=== PATIENT | female | born 1960 | race Caucasian/White ===

== ENCOUNTER → 2017-12-17 | Outpatient (CLI) | payer OTHER | LOC: GMAB 10:47 | PROVIDERS: ATTEND Family Medicine | DX: Z00.00 Encounter for general adult medical examination without abnormal findings (principal) ==

== ENCOUNTER → 2018-09-26 | Outpatient (CLI) | payer OTHER | LOC: LAB.O 16:30 | PROVIDERS: ATTEND Nurse Practitioner Family | DX: N30.00 Acute cystitis without hematuria (principal) ==

== ENCOUNTER → 2019-01-21 | Outpatient (CLI) | payer OTHER | LOC: GMAE 11:20 | PROVIDERS: ATTEND Family Medicine | DX: Z00.00 Encounter for general adult medical examination without abnormal findings (principal) ==

== ENCOUNTER → 2020-03-17 | Outpatient (CLI) | payer OTHER | LOC: GMAE 11:35 | PROVIDERS: ATTEND Family Medicine | DX: Z00.00 Encounter for general adult medical examination without abnormal findings (principal) ==